=== PATIENT | female | born 1980 | race Asian ===

== ENCOUNTER 2018-05-24 03:10 | Inpatient (IN) | payer OTHER ==
[2018-05-24] MEDS ORDERED: LACTATED RINGER'S 1,000 ML IV (04:50)
[2018-05-24] MEDS ORDERED: LIDOCAINE 1% (MPF) 30 ML INJ INJ (05:00)
[2018-05-24] MEDS ORDERED: METHYLERGONOVINE 0.2 MG INJ IM ×2 (05:00→14:30)
[2018-05-24] MEDS ORDERED: OXYTOCIN 30 UNITS/LR 500 ML IV ×4 (05:00→14:30)
[2018-05-24] MEDS ORDERED: IBUPROFEN 600 MG TAB PO (05:00)
[2018-05-24] MEDS ORDERED: BUTORPHANOL 2 MG INJ IV (05:00)
[2018-05-24] MEDS ORDERED: CARBOPROST 250 MCG INJ IM ×2 (05:00→14:30)
[2018-05-24] MEDS ORDERED: BUTORPHANOL 1 MG INJ IV (05:00)
[2018-05-24] MEDS: LACTATED RINGER'S 1,000 ML IV ×3 (05:25→10:37)
[2018-05-24] MEDS ORDERED: CEFAZOLIN 2 GM/50 ML (PMX) 50 ML IVPB (05:30)
[2018-05-24] MEDS: AMPICILLIN 2 GM/NS (PMX) 100 ML IV (05:53)
[2018-05-24 05:59] LABS: ADD MAN DIFF? NO
[2018-05-24 06:04] LABS: BASOPHIL # 0.1 10^3/ul (0.0-0.1); BASOPHILS % 0.6 % (0.0-2.0); EOSINOPHILS # 0.1 10^3/ul (0.0-0.5); HEMATOCRIT 37.6 % (37.0-47.0); HEMOGLOBIN 12.6 g/dl (12.0-16.0); LYMPHOCYTES # 2.3 10^3/ul (0.8-2.9); LYMPHOCYTES % 17.1 % (15.0-51.0); MEAN CORPUSCULAR HGB CONC 33.5 g/dl (32.0-37.0); MEAN CORPUSCULAR VOLUME 86.6 fl (82.0-101.0); MEAN PLATELET VOLUME 11.3 fl (7.4-10.4); MONOCYTE # 0.8 10^3/ul (0.3-0.9); MONOCYTES % 5.9 % (0.0-11.0); NEUTROPHIL # 10.1 10^3/ul (1.6-7.5); NEUTROPHILS % 75.1 % (39.0-77.0); PLATELET COUNT 175 10^3/UL (140-415); RED BLOOD COUNT 4.34 10^6/ul (4.20-5.40); RED CELL DISTRIBUTION WIDTH 13.7 % (11.5-14.5)
[2018-05-24 06:04] LABS: WHITE BLOOD COUNT 13.5 10^3/ul (4.8-10.8)
[2018-05-24 06:23] LABS: INR 0.85; PROTIME 11.7 Sec (11.9-14.9); PT RATIO 0.9
[2018-05-24 06:24] LABS: PARTIAL THROMBOPLASTIN TIME 27.9 Sec (23.0-35.0)
[2018-05-24 06:35] LABS: GLUCOSE 74 mg/dl (70-220)
[2018-05-24] MEDS ORDERED: FENTAnyl 2MCG/ML-ROPIV 0.2% 100 ML (06:49)
[2018-05-24 08:03] LABS: HEPATITIS B SURFACE ANTIGEN NEGATIVE (NEGATIVE)
[2018-05-24] MEDS: SOD CHLORIDE 0.9% 1,000 ML IV ×2 (08:47→10:37)
[2018-05-24] MEDS ORDERED: ROPIVACAINE 0.2% 100ML BAG EPI (09:30)
[2018-05-24] MEDS ORDERED: NALOXONE (0.4 MG/ML) INJ IV (09:30)
[2018-05-24] MEDS ORDERED: FENTAnyl 2MCG/ML-ROPIV 0.2% 100 ML BAG EPI (09:30)
[2018-05-24] MEDS: AMPICILLIN 1 GM/NS (PMX) 50 ML IV (09:58)
[2018-05-24] MEDS: MISOPROSTOL 200 MCG TAB PR (14:01)
[2018-05-24] MEDS: OXYTOCIN 30 UNITS/LR 500 ML IV ×3 (14:10→18:31)
[2018-05-24 14:13] LABS: CBV Base Excess -5.4 mmol/L; CBV COHb 0 %; CBV Oxygen Sat 32.5 mmHG; Cord Blood Venous AADO2 73.9 mmHg; Cord Blood Venous pO2 15.2 mmHG (15.0-45.0); Fraction OxyHgb Cord Venous 31.9 %; MODE ROOM AIR; MetHgb Cord Venous 1.7 %; Sample Type CBV; Site CORD
[2018-05-24 14:14] LABS: AADO2 Cord Arterial 77.6 mmHg; Arterial Cord Blood pCO2 46.1 mmHG (25-50); CBA Base Excess -7.2 mmol/L; CBA COHb 0.3 %; CBA Oxygen Sat 21.7 mmHG; CBA Total Hemglobin 14.6 g/dl; Cord Blood Arterial pO2 16.9 mmHG (15.0-45.0); Fraction OxyHgb Cord Arterial 21.2 %; MODE ROOM AIR; MetHgb Cord Arterial 1.9 %; Sample Type CBA; Site CORD
[2018-05-24] MEDS ORDERED: METHYLERGONOVINE 0.2 MG TAB PO (14:30)
[2018-05-24] MEDS ORDERED: DIPHENHYDRAMINE 25 MG CAP PO (14:30)
[2018-05-24] MEDS ORDERED: ONDANSETRON 4 MG INJ IV (14:30)
[2018-05-24] MEDS ORDERED: ACETAMINOPHEN 325 MG TAB PO (14:30)
[2018-05-24] MEDS ORDERED: ZOLPIDEM 5 MG TAB PO (14:30)
[2018-05-24] MEDS ORDERED: NACL 0.9% 3 ML SYG IV (14:30)
[2018-05-24] MEDS ORDERED: MISOPROSTOL 200 MCG TAB PR (14:30)
[2018-05-24 16:47] LABS: RAPID PLASMA REAGIN NONREACTIVE (NR)
[2018-05-24] MEDS: LANOLIN HPA 1 PKT TOP (18:25)
[2018-05-24] MEDS: IBUPROFEN 600 MG TAB PO ×2 (18:25→23:51)
[2018-05-24] MEDS: WITCH HAZEL/GLYCERIN PAD PR (18:26)
[2018-05-24] MEDS: SENNA/DOCUSATE NA (8.6MG/50MG) TAB PO (21:37)
[2018-05-25] MEDS: IBUPROFEN 600 MG TAB PO ×4 (05:55→23:29)
[2018-05-25] MEDS: SENNA/DOCUSATE NA (8.6MG/50MG) TAB PO ×2 (09:29→21:16)
[2018-05-25] MEDS: FERROUS SULFATE (EC) 325 MG TAB PO (09:29)
[2018-05-25 15:22] LABS: HEMATOCRIT 28.9 % (37.0-47.0); HEMOGLOBIN 9.7 g/dl (12.0-16.0)
[2018-05-26] MEDS: IBUPROFEN 600 MG TAB PO ×2 (05:26→11:27)
[2018-05-26] MEDS: SENNA/DOCUSATE NA (8.6MG/50MG) TAB PO (09:25)
[2018-05-26] MEDS: FERROUS SULFATE (EC) 325 MG TAB PO (09:25)
== END 2018-05-26 15:10 | disposition home or self-care (01) | DRG 807 ==
LOC: OBT 03:10 → L-D 03:10 → OBT 04:46 → L-D 04:46 → PP1 16:23
PROVIDERS: Obstetrics & Gynecology Obstetrics
PROC: 10E0XZZ Delivery of Products of Conception, External Approach (ICD-10-PCS; principal; 2018-05-24)
PROC: 0KQM0ZZ Repair Perineum Muscle, Open Approach (ICD-10-PCS; 2018-05-24)
PROC: 10H07YZ Insertion of Other Device into Products of Conception, Via Natural or Artificial Opening (ICD-10-PCS; 2018-05-24)
PROC: 4A1H7CZ Monitoring of Products of Conception, Cardiac Rate, Via Natural or Artificial Opening (ICD-10-PCS; 2018-05-24)
DX: O76 Abnormality in fetal heart rate and rhythm complicating labor and delivery (principal); Z37.0 Single live birth; O99.824 Streptococcus B carrier state complicating childbirth; O70.1 Second degree perineal laceration during delivery; Z3A.38 38 weeks gestation of pregnancy
CPT/HCPCS: 36415; 36600; 62319; 82803; 82947; 82962; 85014; 85018; 85025; 85610; 85730; 86592; 86850; 86900; 86901; 87340; 88307; 99464